=== PATIENT | male | born 1990 | race Caucasian/White ===

== ENCOUNTER 2019-04-05 02:10 | Emergency (ER) | payer SELFPAY ==
[2019-04-05] MEDS ORDERED: LIDOCAINE 1% W/EPI 1:100,000 MDV 50 ML VIAL ONE (02:44)
[2019-04-05] MEDS ORDERED: TETANUS & DIPHTHERIA TOX,ADULT 0.5 ML VIAL ONE (02:46)
--- NOTE | 2019-04-05 02:55 | ER ---
Nurse's Notes [facility] Name: Delmar Chamorro Age: 28 yrs Sex: Male : 1990 Arrival Date: 04/05/2019 Time: 02:13 Bed 13 Private MD: Diagnosis: Laceration without foreign body of right hand Presentation: 04/05 02:25 Presenting complaint: Patient states: I was putting in a window and my hand went jb4 through it. 02:25 Transition of care: patient was not received from another setting of care. Complicating jb4 Factors: There are no complicating factors for this patient. Onset of symptoms was April 05, 2019. Risk Assessment: Do you want to hurt yourself or someone else? Patient reports no desire to harm self or others. Initial Sepsis Screen: Does the patient meet any 2 criteria? HR > 90 bpm. Yes Does the patient have a suspected source of infection? Yes: Skin breakdown/wound. Care prior to arrival: None. 02:25 Method Of Arrival: Ambulatory jb4 02:25 Acuity: UZAIR 4 jb4 Historical: - Allergies: 02:25 No Known Allergies; jb4 - Home Meds: 02:25 None [Active]; jb4 - PMHx: 02:25 acid reflux; jb4 - PSHx: 02:25 left pinky; jb4 - Immunization history:: Adult Immunizations up to date, Last tetanus immunization: unknown. - Social history:: Smoking status: Patient/guardian denies using tobacco, Patient uses alcohol, occasionally. street drugs, marijuana. - Ebola Screening: : No symptoms or risks identified at this time. - Family history:: not pertinent. Screenin:52 Abuse screen: Denies threats or abuse. Nutritional screening: No deficits noted. jb4 Tuberculosis screening: No symptoms or risk factors identified. Fall Risk None identified. Assessment: 02:52 General: Appears in no apparent distress. comfortable, Behavior is calm, cooperative, jb4 appropriate for age. Pain: Denies pain. Neuro: Level of Consciousness is awake, Oriented to person, place, time, situation. Cardiovascular: Patient's skin is warm and dry. Respiratory: Airway is patent Respiratory effort is even, unlabored, Respiratory pattern is regular, symmetrical. GI: No deficits noted. No signs and/or symptoms were reported involving the gastrointestinal system. : No deficits noted. No signs and/or symptoms were reported regarding the genitourinary system. EENT: No deficits noted. No signs and/or symptoms were reported regarding the EENT system. Derm: Skin is pink, warm \T\ dry. Musculoskeletal: Circulation, motion, and sensation intact. Range of motion: intact in all extremities. Injury Description: Laceration sustained to dorsal aspect of proximal phalanx of left thumb is clean, 2.6 to 7.5 cm long. 03:13 Reassessment: Patient appears in no apparent distress at this time. Patient and/or jb4 family updated on plan of care and expected duration. Pain level reassessed. Patient is alert, oriented x 3, equal unlabored respirations, skin warm/dry/pink. 03:22 Reassessment: PT left ED following laceration repair. Did not wait for d/c instrucitons.4 Vital Signs: 02:25 BP 122 / 82; Pulse 119; Resp 16; Temp 99.1(O); Pulse Ox 96% on R/A; Weight 83.91 kg [facility] (R); Height 6 ft. 1 in. (185.42 cm) (R); Pain 0/10; 02:25 Body Mass Index 24.41 (83.91 kg, 185.42 cm) 4 ED Course: 02:13 Patient arrived in ED. ag3 02:25 Arm band placed on right wrist. jb4 02:32 Sherif Monroy MD is Attending Physician. latonya 02:48 Will Amado, RN is Primary Nurse. jb4 02:49 Triage completed. jb4 02:52 Patient has correct armband on for positive identification. Bed in low position. Call [facility] light in reach. Side rails up X 1. Pulse ox on. NIBP on. 02:52 Patient did not have IV access during this emergency room visit. jb4 03:13 Assist provider with laceration repair on dorsal aspect of proximal phalanx of left jb4 thumb that was between 2.6 to 7.5 cm using sutures. Set up tray. Performed by Sherif Monroy MD Dressed with 4X4s, Patient tolerated well. Administered Medications: 02:45 Drug: Tetanus-Diphtheria Toxoid Adult 0.5 ml {Senior C Software Developer: [employer]. Exp: jb4 12/03/2020. Lot #: [id number]. } Route: IM; Site: right deltoid; 03:22 Follow up: Response: No adverse reaction jb4 03:15 Drug: Lidocaine-Epinephrine -1%: (1:100,000) 1 application {Note: administered by ER jb4 provider..} Volume: 20 ml; Route: Infiltration; : Follow up: Response: No adverse reaction jb4 Outcome: 02:53 Discharge ordered by MD. hanks 03:22 Discharged to home ambulatory. jb4 03:22 Condition: stable 03:23 Patient left the ED. jb4 Signatures: Sherif Monroy MD MD cha Bryson, James, RN RN jb4 Yuly Reyes ag3
--- NOTE | 2019-04-05 02:56 | EDPHYS ---
Physician Documentation [facility] Name: Delmar Chamorro Age: 28 yrs Sex: Male : 1990 Arrival Date: 04/05/2019 Time: 02:13 Bed 13 Private MD: GONZALO Physician Sherif Monroy HPI: 04/05 02:50 This 28 yrs old Male presents to ER via Ambulatory with complaints of latonya Laceration To Hand. 02:50 The patient has a laceration occurred at home, and there are no complicating factors. latonya The laceration(s) is(are) located on the right hand. Onset: The symptoms/episode began/occurred just prior to arrival. Associated signs and symptoms: The patient has no apparent associated signs or symptoms. The patient has not experienced similar symptoms in the past. Historical: - Allergies: 02:25 No Known Allergies; jb4 - Home Meds: 02:25 None [Active]; jb4 - PMHx: 02:25 acid reflux; jb4 - PSHx: 02:25 left pinky; jb4 - Immunization history:: Adult Immunizations up to date, Last tetanus immunization: unknown. - Social history:: Smoking status: Patient/guardian denies using tobacco, Patient uses alcohol, occasionally. street drugs, marijuana. - Ebola Screening: : No symptoms or risks identified at this time. - Family history:: not pertinent. ROS: 02:50 Constitutional: Negative for fever, chills, and weight loss, Eyes: Negative for injury, latonya pain, redness, and discharge, ENT: Negative for injury, pain, and discharge, Neck: Negative for injury, pain, and swelling, Cardiovascular: Negative for chest pain, palpitations, and edema, Respiratory: Negative for shortness of breath, cough, wheezing, and pleuritic chest pain, Abdomen/GI: Negative for abdominal pain, nausea, vomiting, diarrhea, and constipation, Back: Negative for injury and pain, : Negative for injury, bleeding, discharge, and swelling, Skin: Negative for injury, rash, and discoloration, Neuro: Negative for headache, weakness, numbness, tingling, and seizure, Psych: Negative for depression, anxiety, suicide ideation, homicidal ideation, and hallucinations, Allergy/Immunology: Negative for hives, rash, and allergies, Endocrine: Negative for neck swelling, polydipsia, polyuria, polyphagia, and marked weight changes, Hematologic/Lymphatic: Negative for swollen nodes, abnormal bleeding, and unusual bruising. 02:50 MS/extremity: Positive for laceration, pain, of the right hand. Exam: 02:50 Constitutional: This is a well developed, well nourished patient who is awake, alert, latonya and in no acute distress. Head/Face: Normocephalic, atraumatic. Eyes: Pupils equal round and reactive to light, extra-ocular motions intact. Lids and lashes normal. Conjunctiva and sclera are non-icteric and not injected. Cornea within normal limits. Periorbital areas with no swelling, redness, or edema. ENT: Nares patent. No nasal discharge, no septal abnormalities noted. Tympanic membranes are normal and external auditory canals are clear. Oropharynx with no redness, swelling, or masses, exudates, or evidence of obstruction, uvula midline. Mucous membranes moist. Neck: Trachea midline, no thyromegaly or masses palpated, and no cervical lymphadenopathy. Supple, full range of motion without nuchal rigidity, or vertebral point tenderness. No Meningismus. Chest/axilla: Normal chest wall appearance and motion. Nontender with no deformity. No lesions are appreciated. Cardiovascular: Regular rate and rhythm with a normal S1 and S2. No gallops, murmurs, or rubs. Normal PMI, no JVD. No pulse deficits. Respiratory: Lungs have equal breath sounds bilaterally, clear to auscultation and percussion. No rales, rhonchi or wheezes noted. No increased work of breathing, no retractions or nasal flaring. Abdomen/GI: Soft, non-tender, with normal bowel sounds. No distension or tympany. No guarding or rebound. No evidence of tenderness throughout. Back: No spinal tenderness. No costovertebral tenderness. Full range of motion. Skin: Warm, dry with normal turgor. Normal color with no rashes, no lesions, and no evidence of cellulitis. Neuro: Awake and alert, GCS 15, oriented to person, place, time, and situation. Cranial nerves II-XII grossly intact. Motor strength 5/5 in all extremities. Sensory grossly intact. Cerebellar exam normal. Normal gait. Psych: Awake, alert, with orientation to person, place and time. Behavior, mood, and affect are within normal limits. 02:50 Musculoskeletal/extremity: Extremities: laceration, pain, ROM: full active range of motion, full passive range of motion, Circulation is intact in all extremities. Pulses: are normal with no appreciated deficits, Sensation intact. Compartment Syndrome exam of affected extremity: is normal. Vital Signs: 02:25 BP 122 / 82; Pulse 119; Resp 16; Temp 99.1(O); Pulse Ox 96% on R/A; Weight 83.91 kg jb4 (R); Height 6 ft. 1 in. (185.42 cm) (R); Pain 0/10; 02:25 Body Mass Index 24.41 (83.91 kg, 185.42 cm) [facility] Laceration: 02:54 Wound Repair of 2.5cm ( 1.0in ) subcutaneous laceration to dorsal aspect of proximal latonya phalanx of left thumb. Linear shaped.. Distal neuro/vascular/tendon intact. Anesthesia: Local anesthetic administered with 4 mls of 1% lidocaine w/ Epi. Wound prep: Simple cleansing by me. Skin closed with 2 5-0 Prolene using vertical mattress sutures and sterile technique. Dressed with Neosporin. Patient tolerated well. MDM: 02:32 Patient medically screened. [facility] 02:50 Data reviewed: vital signs, nurses notes. [facility] 04/05 02:50 Order name: Wound dressing; Complete Time: 03:19 [facility] 04/05 02:50 Order name: Suture Tray at Bedside; Complete Time: 03:19 [facility] Administered Medications: 02:45 Drug: Tetanus-Diphtheria Toxoid Adult 0.5 ml {Hat Model: [employer]. Exp: jbJazmín 12/03/2020. Lot #: [id number]. } Route: IM; Site: right deltoid; 03:22 Follow up: Response: No adverse reaction [facility] 03:15 Drug: Lidocaine-Epinephrine -1%: (1:100,000) 1 application {Note: administered by ER jb4 provider..} Volume: 20 ml; Route: Infiltration; 03:22 Follow up: Response: No adverse reaction [facility] Disposition: 04/05/19 02:53 Discharged to Home. Impression: Laceration without foreign body of right hand. - Condition is Stable. - Discharge Instructions: Laceration Care, Adult, Laceration Care, Adult, [id number]. - Medication Reconciliation Form, Thank You Letter, Antibiotic Education, Prescription Opioid Use form. - Follow up: Private Physician; When: 7 - 10 days; Reason: Recheck today's complaints, Continuance of care, Re-evaluation by your physician. - Problem is new. - Symptoms have improved. Signatures: Sherif Monroy MD MD cha Bryson, James RN RN jb4 Corrections: (The following items were deleted from the chart) 03:23 02:53 04/05/2019 02:53 Discharged to Home. Impression: Laceration without foreign body jb4 of right hand. Condition is Stable. Forms are Medication Reconciliation Form, Thank You Letter, Antibiotic Education, Prescription Opioid Use. Follow up: Private Physician; When: 7 - 10 days; Reason: Recheck today's complaints, Continuance of care, Re-evaluation by your physician. Problem is new. Symptoms have improved. latonya
[2019-04-05 05:28] VITALS: BP 122/82; TEMP 99.1; O2SAT 96
== END 2019-04-05 03:23 | disposition home or self-care (01) ==
LOC: ER 02:10
PROC: 0JQK0ZZ Repair Left Hand Subcutaneous Tissue and Fascia, Open Approach (ICD-10-PCS; principal; 2019-04-05)
DX: S61.411A Laceration without foreign body of right hand, initial encounter (principal); W25.XXXA Contact with sharp glass, initial encounter; Y93.89 Activity, other specified; Y92.89 Other specified places as the place of occurrence of the external cause; Z23 Encounter for immunization
CPT/HCPCS: 90471; 90714; 99283

== ENCOUNTER 2024-11-26 16:37 | Emergency (ER) | payer OTHER, SELFPAY ==
[2024-11-26 18:11] LABS: Absolute Basophils 0.1 K/uL (0-0.5); Absolute Eosinophils 0.1 K/uL (0-0.5); Absolute Lymphocytes (CBC) 1.4 K/uL (0.7-4.9); Absolute Monocytes 1.1 K/uL (0.1-1.3); Absolute Neutrophil 5.2 K/uL (1.8-8.0); Basophils % 0.7 % (0-1.3); Eosinophils % 1.4 % (0-4.4); Hematocrit 42.4 % (39.6-49.0); Hemoglobin 14.4 g/dL (13.6-17.9); Lymphocytes % 17.8 % (15.3-44.8); MCH 28.4 pg (27.0-35.0); MCV 83.6 fL (80-100); MPV 8.6 fL (7.6-11.3); Monocytes % 13.8 % (3.3-12.3); Neutrophils % 66.3 % (41.7-73.7); Nucleated Red Blood Cells % 0.1 % (0-0); Platelets 84 thou/uL (152-406); RBC Red Blood Cell Count 5.07 M/uL (4.33-5.43); Red Cell Distribution Width 16.2 % (12.1-15.2)
[2024-11-26 18:30] LABS: Albumin 3.7 g/dL (3.4-5.0); Albumin/Globulin Ratio 0.9 (1.1-1.8); Anion Gap 7.4 mEq/L (5.0-15.0); Bilirubin Total 0.3 mg/dL (0.2-1.0); Globulin 4.2 g/dL (2.3-3.5); Potassium 4.4 mEq/L (3.5-5.1); Protein, Total 7.9 g/dL (6.4-8.2)
[2024-11-26] MEDS ORDERED: ONDANSETRON 4 MG/2 ML VIAL ONE (18:38)
[2024-11-26] MEDS ORDERED: NA CHLORIDE 0.9% 1,000 ML ONE (18:38)
[2024-11-26] MEDS ORDERED: FAMOTIDINE 20 MG/2 ML VIAL IV ONE (18:38)
[2024-11-26 19:28] LABS: Blood Morphology Comment NOT SEEN (NOT SEEN); Platelet Estimate DECR; White Blood Cell Scan OK (OK)
--- NOTE | 2024-11-26 19:59 | ER ---
Nurse's Notes [facility] Name: Delmar Chamorro Age: 34 yrs Sex: Male : 1990 Arrival Date: 11/26/2024 Time: 16:37 Bed 15 Private MD: Diagnosis: Diarrhea, unspecified Presentation: 11/26 16:49 Chief complaint: Patient states: DIARRHEA, VOMITING, ABDOMINAL CRAMPING, DENIES FEVER. db INTERMITTENT X 1 MONTH. Coronavirus screen: Client denies travel out of the [place] in the last 14 days. At this time, the client does not indicate any symptoms associated with coronavirus-19. Ebola Screen: Patient negative for fever greater than or equal to 101.5 degrees Fahrenheit, and additional compatible Ebola Virus Disease symptoms Patient denies exposure to infectious person. Patient denies travel to an Ebola-affected area in the 21 days before illness onset. No symptoms or risks identified at this time. Initial Sepsis Screen: Does the patient meet any 2 criteria? No. Patient's initial sepsis screen is negative. Does the patient have a suspected source of infection? No. Patient's initial sepsis screen is negative. Risk Assessment: Do you want to hurt yourself or someone else? Patient reports no desire to harm self or others. Onset of symptoms was November 26, 2024. 16:49 Method Of Arrival: Ambulatory db 16:49 Acuity: UZAIR 3 db Triage Assessment: 16:52 General: Appears in no apparent distress. comfortable, Behavior is calm, cooperative. db Pain: Complains of pain in abdomen. Respiratory: Airway is patent Respiratory effort is even, unlabored, Respiratory pattern is regular, symmetrical. GI: Abdomen is non-distended, Reports nausea, vomiting. Historical: - Allergies: 16:51 No Known Allergies; db - PMHx: 16:51 acid reflux; db - Immunization history:: Adult Immunizations unknown. - Infectious Disease History:: Denies. - Social history:: Smoking status: Patient/guardian denies using tobacco, Stopped _ months ago [address], marijuana. Screenin:32 [facility] ED Fall Risk Assessment (Adult) History of falling in the last 3 months, dd2 including since admission No falls in past 3 months (0 pts) Confusion or Disorientation No (0 pts) Intoxicated or Sedated No (0 pts) Impaired Gait No (0 pts) Mobility Assist Device Used No (0 pt) Altered Elimination No (0 pt) Score/Fall Risk Level 0 - 2 = Low Risk Oriented to surroundings, Maintained a safe environment, Educated pt \T\ family on fall prevention, incl call for assistance when getting out of bed, Assessed \T\ reinforced patient's understanding of fall precautions, Hourly rounding (assess needs \T\ fall precautionary measures) done. Abuse screen: Denies threats or abuse. Denies injuries from another. Nutritional screening: No deficits noted. Tuberculosis screening: No symptoms or risk factors identified. Assessment: 18:32 General: Appears in no apparent distress. Behavior is calm, cooperative, appropriate dd2 for age. Pain: Denies pain. Complains of pain in abdomen Pain currently is 0 out of 10 on a pain scale. at worst was 8 out of 10 on a pain scale. Neuro: No deficits noted. Cardiovascular: No deficits noted. Respiratory: No deficits noted. GI: Abdomen is flat, non-distended, Bowel sounds present X 4 quads. Abd is soft and non tender X 4 quads. Reports lower abdominal pain, upper abdominal pain, diarrhea, nausea, vomiting, intermittent x1 month. : No deficits noted. No signs and/or symptoms were reported regarding the genitourinary system. EENT: No deficits noted. No signs and/or symptoms were reported regarding the EENT system. Derm: No deficits noted. No signs and/or symptoms reported regarding the dermatologic system. Musculoskeletal: No deficits noted. No signs and/or symptoms reported regarding the musculoskeletal system. 19:33 Reassessment: Patient appears in no apparent distress at this time. Patient and/or bm8 family updated on plan of care and expected duration. Pain level reassessed. Patient is alert, oriented x 3, equal unlabored respirations, skin warm/dry/pink. Patient states feeling better. Patient states symptoms have improved. General: Appears in no apparent distress. comfortable, Behavior is calm, cooperative, appropriate for age. Pain: Denies pain. 20:01 Reassessment: Patient appears in no apparent distress at this time. No changes from bm8 previously documented assessment. Patient and/or family updated on plan of care and expected duration. Pain level reassessed. Patient is alert, oriented x 3, equal unlabored respirations, skin warm/dry/pink. Patient denies pain at this time. Patient states feeling better. Patient states symptoms have improved. Vital Signs: 16:49 BP 151 / 97; Pulse 67; Resp 16; Temp 98.3; Pulse Ox 97% ; Weight 97.52 kg; Height 6 ft. db 1 in. ; 19:34 BP 145 / 89; Pulse 81; Resp 19; Temp 98.3; Pulse Ox 100% ; Pain 0/10; bm8 20:01 BP 140 / 96; Pulse 67; Resp 18; Temp 98.3; Pulse Ox 100% ; Pain 0/10; bm8 16:49 Body Mass Index 28.37 (97.52 kg, 185.42 cm) db 19:34 Pain Scale: Adult bm8 20:01 Pain Scale: Adult bm8 [place] Coma Score: 18:32 Eye Response: spontaneous(4). Motor Response: obeys commands(6). Verbal Response: dd2 oriented(5). Total: 15. 19:34 Eye Response: spontaneous(4). Motor Response: obeys commands(6). Verbal Response: bm8 oriented(5). Total: 15. ED Course: 16:39 Patient arrived in ED. mr 16:42 Jay Delores, [facility] kb 16:42 Sebastian Christensen MD is Attending Physician. kb 16:51 Triage completed. db 16:51 Arm band placed on left wrist. db 18:06 CBC with Diff Sent. bc6 18:06 CMP Sent. bc6 18:06 Lipase Sent. bc6 18:06 Initial lab(s) drawn, by me, sent to lab. Inserted saline lock: 20 gauge in right bc6 antecubital area, using aseptic technique. Blood collected. Flushed with 10 mL NS. 18:32 Patient has correct armband on for positive identification. Bed in low position. Call dd2 light in reach. Side rails up X 1. Client placed on continuous cardiac and pulse oximetry monitoring. NIBP monitoring applied. Door closed. Noise minimized. Warm blanket given. Pillow given. Verbal reassurance given. 18:32 No provider procedures requiring assistance completed. Patient maintains SpO2 dd2 saturation greater than 95% on room air. 18:50 EVERETT PIÑA, RN is Primary Nurse. dd2 20:02 Provided Education on: post er care. bm8 20:02 IV discontinued, intact, bleeding controlled, No redness/swelling at site. Pressure bm8 dressing applied. Administered Medications: 18:50 Drug: Famotidine IVP 20 mg IVP once; dilute with 10 mL 0.9% NaCl; give over 2 minutes dd2 Route: IVP; Site: right antecubital; 19:54 Follow up: Response: No adverse reaction bm8 18:50 Drug: Ondansetron IVP 4 mg IVP once; over 2 minutes Route: IVP; Site: right antecubital;dd2 19:54 Follow up: Response: No adverse reaction bm8 18:50 Drug: NS 0.9% IV 1000 ml IV at 1 bolus Per protocol; to be given as a bolus over 60 dd2 minutes Route: IV; Rate: 1 bolus; Site: right antecubital; 19:54 Follow up: Response: No adverse reaction; IV Status: Completed infusion bm8 Medication: 18:32 VIS not applicable for this client. dd2 Outcome: 19:59 Discharge ordered by . kaylynn 20:02 Discharged to home ambulatory, with family, bm8 20:02 Condition: stable 20:02 Discharge instructions given to patient, family, Instructed on discharge instructions, follow up and referral plans. no drinking with medication, no driving heavy equipment, medication usage, safety practices, Demonstrated understanding of instructions, follow-up care, medications, Prescriptions given X 20:03 Prescriptions given X 1, bm8 20:17 Patient left the ED. bm8 Signatures: Delores Thompson, W[employer]ESS [employer]SEMBLER-C W[employer] HARNESS [employer]SEMBLER-Ckb Kelin Montoya, Reg Reg mr Aimee Botello, RN RN db Ysabel Peraza bc6 Bobby Sandoval RN RN bm8 EVERETT PIÑA RN RN dd2 Corrections: (The following items were deleted from the chart) 16:52 16:49 Pulse 67bpm; Resp 16bpm; Pulse Ox 97%; db db 20:02 19:34 BP 145 / 89; Pulse 81bpm; Resp 59bpm; Pulse Ox 100%; Temp 98.3F; Pain 0/10, bm8 Adult; bm8
--- NOTE | 2024-11-26 19:59 | EDPHYS ---
Physician Documentation [facility] Name: Delmar Chamorro Age: 34 yrs Sex: Male : 1990 Arrival Date: 11/26/2024 Time: 16:37 Bed 15 Private MD: ED Physician Sebastian Christensen HPI: 11/26 18:45 This 34 yrs old Male presents to ER via Ambulatory with complaints of Abdominal Pain. kb 18:45 Patient is a 34-year-old male who presents for diarrhea after eating and intermittent kb vomiting that started a month ago. States he had the symptoms in the past that had lasted for years but they had been resolved for the last 8 months or so then started up 1 month ago. Denies fever or abdominal pain. States he mostly vomits in the mornings.. Historical: - Allergies: 16:51 No Known Allergies; db - PMHx: 16:51 acid reflux; db - Immunization history:: Adult Immunizations unknown. - Infectious Disease History:: Denies. - Social history:: Smoking status: Patient/guardian denies using tobacco, Stopped _ months ago [address], marijuana. ROS: 18:45 Constitutional: As per HPI kb Exam: 18:45 Constitutional: This is a well developed, well nourished patient who is awake, alert, kb and in no acute distress. Head/Face: Normocephalic, atraumatic. ENT: Moist Mucous membranes Cardiovascular: Regular rate Respiratory: Respirations even and unlabored. No increased work of breathing. Talking in full sentences Abdomen/GI: Soft, non-tender. No distention Skin: Warm, dry with normal turgor. Normal color. MS/ Extremity: Pulses equal, no cyanosis. Neurovascular intact. Full, normal range of motion. Neuro: Awake and alert, GCS 15, oriented to person, place, time, and situation. Vital Signs: 16:49 BP 151 / 97; Pulse 67; Resp 16; Temp 98.3; Pulse Ox 97% ; Weight 97.52 kg; Height 6 ft. db 1 in. ; 19:34 BP 145 / 89; Pulse 81; Resp 19; Temp 98.3; Pulse Ox 100% ; Pain 0/10; bm8 20:01 BP 140 / 96; Pulse 67; Resp 18; Temp 98.3; Pulse Ox 100% ; Pain 0/10; bm8 16:49 Body Mass Index 28.37 (97.52 kg, 185.42 cm) db 19:34 Pain Scale: Adult bm8 20:01 Pain Scale: Adult bm8 Matthew Coma Score: 18:32 Eye Response: spontaneous(4). Motor Response: obeys commands(6). Verbal Response: dd2 oriented(5). Total: 15. 19:34 Eye Response: spontaneous(4). Motor Response: obeys commands(6). Verbal Response: bm8 oriented(5). Total: 15. MDM: 16:42 Medical Screening Exam initiated kb 18:45 Data reviewed: vital signs, nurses notes. kb 11/26 16:52 Order name: CBC with Diff; Complete Time: 19:37 kb 11/26 16:52 Order name: CMP; Complete Time: 18:36 kb 11/26 16:52 Order name: Lipase; Complete Time: 18:36 kb 11/26 18:22 Order name: CBC Smear Scan; Complete Time: 19:37 EDMS 11/26 16:52 Order name: IV Saline Lock; Complete Time: 18:06 kb 11/26 16:52 Order name: Labs collected and sent; Complete Time: 18:06 kb Administered Medications: 18:50 Drug: Famotidine IVP 20 mg IVP once; dilute with 10 mL 0.9% NaCl; give over 2 minutes dd2 Route: IVP; Site: right antecubital; 19:54 Follow up: Response: No adverse reaction 8 18:50 Drug: Ondansetron IVP 4 mg IVP once; over 2 minutes Route: IVP; Site: right antecubital;dd2 19:54 Follow up: Response: No adverse reaction bm8 18:50 Drug: NS 0.9% IV 1000 ml IV at 1 bolus Per protocol; to be given as a bolus over 60 dd2 minutes Route: IV; Rate: 1 bolus; Site: right antecubital; 19:54 Follow up: Response: No adverse reaction; IV Status: Completed infusion bm8 Disposition Summary: 11/26/24 19:59 Discharge Ordered Notes: Location: Home kb Condition: Stable kb Diagnosis - Diarrhea, unspecified kb Followup: kb - With: Emergency Department - When: As needed - Reason: Worsening of condition Followup: kb - With: Private Physician - When: 2 - 3 days - Reason: Recheck today's complaints, Continuance of care, Re-evaluation by your physician Discharge Instructions: - Discharge Summary Sheet kb - Food Choices to Help Relieve Diarrhea, Adult kb - Diarrhea, Adult, [id number] kb Forms: - Medication Reconciliation Form kb - Antibiotic Education kb - Prescription Opioid Use kb - Patient Portal Instructions kb - Leadership Thank You Letter kb Prescriptions: - Zofran 4 mg Oral tablet - take 1 tablet ORAL route every 6 hours As needed; 12 tablet; Refills: 0, kb Product Selection Permitted Signatures: Dispatcher [employer] EDMS Delores Thompson, DIRECTOR OF SALES AND MARKETING-C DIRECTOR OF SALES AND MARKETING-Aimee Rose, RN RN db EVERETT PIÑA RN RN dd2 Bobby Sandoval RN bm8 Corrections: (The following items were deleted from the chart) 16:52 16:52 CBC+H.LAB.BRZ ordered. EDMS EDMS 16:52 16:52 COMPREHENSIVE METABOLIC PANEL+C.LAB.BRZ ordered. EDMS EDMS 16:52 16:52 LIPASE+C.LAB.BRZ ordered. EDMS EDMS
[2024-11-26 21:23] VITALS: TEMP 98.3
[2024-11-26 21:25] VITALS: O2SAT 100
[2024-11-26 21:26] VITALS: BP 140/96
== END 2024-11-26 20:17 | disposition home or self-care (01) ==
LOC: ER 16:37
DX: R19.7 Diarrhea, unspecified (principal)
CPT/HCPCS: 85025; 36415; 83690; 80053; J2405; J7030